=== PATIENT | female | born 1960 | race Two or more races ===

== ENCOUNTER 2017-08-30 21:48 | Inpatient (IN) | payer BC ==
[~2017-08-30] VITALS: Ht 160 cm; Wt 81.6 kg
[~2017-08-30 21:48] MED LIST: FLUOXETINE HCL10 MG ORAL; KEPPRA500 M4 ORAL; LEVOTHYROXINE25 MCG ORAL; LORAZEPAM1 MG ORAL; VENLAFAXINE HCL25 MG ORAL; XANAX0.5 MG ORAL
[2017-08-30] MEDS ORDERED: LORazepam Inj 2mg/ml 1ml IV ONE (22:00)
[2017-08-30] MEDS ORDERED: levETIRAcetam 500mg/NS100ml 100 ML IVPB ONE (22:00)
--- NOTE | 2017-08-30 22:01 | Emergency Room Report ---
History of Present Illness General Chief Complaint: Seizure Source: Patient Present Illness HPI This is a 57-year-old female with a history of brain cancer status post resection. Since then she had seizure. She taking multiple medications of Keppra and Ativan. She had a total of 3 focal seizure tonight. It started with itching of her eyes and lip. Lasted only a few minutes. Her boyfriend called 911. Patient has small focal seizure lasting about 15 seconds here. She is back to baseline. No nausea no vomiting. No fever or chills. Nothing new. Is a frequent occurrence occurring every 2-3 months. Allergies: Coded Allergies: No Known Allergies (Unverified , 11/18/16) Patient History Past Medical History: see triage record, old chart reviewed Past Surgical History: none Pertinent Family History: none Social History: Denies: smoking Last Menstrual Period: n/a Now: No Immunizations: other Reviewed Nursing Documentation: PMH: Agreed, PSxH: Agreed Nursing Documentation-PMH Past Medical History: No History, Except For Hx Seizures: Yes Review of Systems Eye: Denies: eye pain, blurred vision ENT: Denies: ear pain, nose congestion, throat swelling Respiratory: Denies: cough, shortness of breath Cardiovascular: Denies: chest pain, palpitations Gastrointestinal: Denies: abdominal pain, diarrhea, nausea, vomiting Musculoskeletal: Denies: back pain, joint pain Skin: Denies: rash Neurological: Denies: headache, numbness Endocrine: Denies: increased thirst, increased urine Hematologic/Lymphatic: Denies: easy bruising All Other Systems: negative except mentioned in HPI Physical Exam Vital Signs Date Time Temp Pulse Resp B/P (MAP) Pulse Ox O2 Delivery O2 Flow Rate FiO2 08/30/17 21:41 98.2 105 20 126/70 97 Nasal Cannula 2.0 vitals normal Sp02 EP Interpretation: reviewed, normal General Appearance: well appearing, no apparent distress, alert Head: normocephalic, atraumatic Eyes: bilateral eye PERRL, bilateral eye EOMI ENT: hearing grossly normal, normal pharynx Neck: full range of motion, supple, no meningismus Respiratory: chest non-tender, lungs clear, normal breath sounds Cardiovascular #1: regular rate, rhythm, no murmur Gastrointestinal: normal bowel sounds, non tender, no mass, no organomegaly, no bruit, non-distended Musculoskeletal: back normal, gait/station normal, normal range of motion Psychiatric: mood/affect normal Skin: warm/dry Medical Decision Making Diagnostic Impression: Primary Impression: Seizure disorder, partial, intractable ER Course She presents with partial seizure. She had multiple episodes at home and here. No postictal period. She was recently placed back on Effexor for depression. This may have lower her seizure threshold. Her PCP Dr. Chen came to the ER. He said that patient wanted to be back on Effexor even though it may have lower seizure threshold. This was effective for depression before. Patient had recent MRI the last few months of her brain. No recurrence of the meningioma. Because of the multiple seizure episodes, one make her for further workup and possible new seizure medication. I gave her a dose of Keppra here as well as Ativan. I see no need for one more CT scan. Labs unremarkable. I contacted Dr. Dumont for admission. Lab Results Impression labs normal EKG Diagnostic Results Rate: normal Rhythm: NSR ST Segments: no acute changes Rhythm Strip Diag. Results Rhythm Strip Time: 23:43 EP Interpretation: yes Rate: 100 Rhythm: NSR Last Vital Signs Date Time Temp Pulse Resp B/P (MAP) Pulse Ox O2 Delivery O2 Flow Rate FiO2 08/30/17 21:41 98.2 105 20 126/70 97 Nasal Cannula 2.0 Status: improved Disposition: ADMITTED INPATIENT Condition: Serious DIEGO KAPLAN M.D. Aug 30, 2017 22:01
[2017-08-30 23:16] VITALS: BP 101/61
[2017-08-30 23:16] LABS: BASOPHILS % (AUTO) 0.5 % (0.0-2.0); EOSINOPHILS % (AUTO) 1.5 % (0.0-3.0); LYMPHOCYTES % (AUTO) 12.3 % (20.0-45.0); MEAN CORPUSCULAR HGB CONC 31.9 G/DL (32.0-36.0); MEAN CORPUSCULAR VOLUME 91 FL (80-99); MEAN PLATELET VOLUME 7.7 FL (6.5-10.1); MONOCYTES % (AUTO) 5.5 % (1.0-10.0); NEUTROPHILS % (AUTO) 80.3 % (45.0-75.0); PLATELET COUNT 268 K/UL (150-450); RED BLOOD COUNT 4.09 M/UL (4.20-5.40); RED CELL DISTRIBUTION WIDTH 11.7 % (11.6-14.8); WHITE BLOOD COUNT 10.8 K/UL (4.8-10.8)
[2017-08-30 23:34] LABS: ANION GAP 13 (5-15); CALCIUM 9.5 mg/dL (8.6-10.2); CARBON DIOXIDE 24 mEQ/L (20-30); CHLORIDE 100 mEQ/L (98-107); CREATININE 0.7 mg/dL (0.5-0.9); GLOMERULAR FILTRATION RATE > 60 mL/min (>60); HEMOLYSIS 5; POTASSIUM 4.1 mEQ/L (3.4-4.9); SODIUM 137 mEQ/L (135-145)
[2017-08-31] VITALS (7 sets, daily range): BP systolic 88–116; BP diastolic 47–74
[2017-08-31] MEDS ORDERED: LORazepam 1mg tab ORAL PRN (01:00)
[2017-08-31] MEDS ORDERED: levETIRAcetam 500mg/NS100ml 100 ML IVPB SCH (09:00)
[2017-08-31] MEDS ORDERED: levETIRAcetam 1,000mg/NS100ml 100 ML IVPB SCH (09:00)
[2017-08-31 10:16] LABS: BASOPHILS % (AUTO) 0.8 % (0.0-2.0); EOSINOPHILS % (AUTO) 1.5 % (0.0-3.0); LYMPHOCYTES % (AUTO) 22.6 % (20.0-45.0); MEAN CORPUSCULAR HEMOGLOBIN 30.7 PG (27.0-31.0); MEAN CORPUSCULAR HGB CONC 34.1 G/DL (32.0-36.0); MEAN CORPUSCULAR VOLUME 90 FL (80-99); MEAN PLATELET VOLUME 8.7 FL (6.5-10.1); MONOCYTES % (AUTO) 7.5 % (1.0-10.0); NEUTROPHILS % (AUTO) 67.7 % (45.0-75.0); PLATELET COUNT 254 K/UL (150-450); RED BLOOD COUNT 3.71 M/UL (4.20-5.40); RED CELL DISTRIBUTION WIDTH 11.6 % (11.6-14.8); WHITE BLOOD COUNT 8.3 K/UL (4.8-10.8)
[2017-08-31 10:29] LABS: ANION GAP 10 (5-15); CALCIUM 9.1 mg/dL (8.6-10.2); CARBON DIOXIDE 25 mEQ/L (20-30); CHLORIDE 101 mEQ/L (98-107); CREATININE 0.8 mg/dL (0.5-0.9); GLOMERULAR FILTRATION RATE > 60 mL/min (>60); HEMOLYSIS 5; POTASSIUM 3.7 mEQ/L (3.4-4.9); SODIUM 136 mEQ/L (135-145)
--- NOTE | 2017-08-31 12:04 | Neurology Progress Note ---
Objective Physical Exam Last Vital Signs Date Time Temp Pulse Resp B/P (MAP) Pulse Ox O2 Delivery O2 Flow Rate FiO2 08/31/17 11:45 97.0 65 18 95/65 99 Room Air 08/31/17 00:36 2.0 Laboratory Tests Test 08/30/17 23:10 08/31/17 09:50 White Blood Count 10.8 K/UL (4.8-10.8) 8.3 K/UL (4.8-10.8) Red Blood Count 4.09 M/UL (4.20-5.40) L 3.71 M/UL (4.20-5.40) L Hemoglobin 11.9 G/DL (12.0-16.0) L 11.4 G/DL (12.0-16.0) L Hematocrit 37.3 % (37.0-47.0) 33.3 % (37.0-47.0) L Mean Corpuscular Volume 91 FL (80-99) 90 FL (80-99) Mean Corpuscular Hemoglobin 29.0 PG (27.0-31.0) 30.7 PG (27.0-31.0) Mean Corpuscular Hemoglobin Concent 31.9 G/DL (32.0-36.0) L 34.1 G/DL (32.0-36.0) Red Cell Distribution Width 11.7 % (11.6-14.8) 11.6 % (11.6-14.8) Platelet Count 268 K/UL (150-450) 254 K/UL (150-450) Mean Platelet Volume 7.7 FL (6.5-10.1) 8.7 FL (6.5-10.1) Neutrophils (%) (Auto) 80.3 % (45.0-75.0) H 67.7 % (45.0-75.0) Lymphocytes (%) (Auto) 12.3 % (20.0-45.0) L 22.6 % (20.0-45.0) Monocytes (%) (Auto) 5.5 % (1.0-10.0) 7.5 % (1.0-10.0) Eosinophils (%) (Auto) 1.5 % (0.0-3.0) 1.5 % (0.0-3.0) Basophils (%) (Auto) 0.5 % (0.0-2.0) 0.8 % (0.0-2.0) Sodium Level 137 mEQ/L (135-145) 136 mEQ/L (135-145) Potassium Level 4.1 mEQ/L (3.4-4.9) 3.7 mEQ/L (3.4-4.9) Chloride Level 100 mEQ/L (98-107) 101 mEQ/L (98-107) Carbon Dioxide Level 24 mEQ/L (20-30) 25 mEQ/L (20-30) Anion Gap 13 (5-15) 10 (5-15) Blood Urea Nitrogen 13 mg/dL (7-23) 12 mg/dL (7-23) Creatinine 0.7 mg/dL (0.5-0.9) 0.8 mg/dL (0.5-0.9) Estimat Glomerular Filtration Rate > 60 mL/min (>60) > 60 mL/min (>60) Glucose Level 127 mg/dL (74-106) H 85 mg/dL (74-106) Calcium Level 9.5 mg/dL (8.6-10.2) 9.1 mg/dL (8.6-10.2) Impression/Recommendations Recommendations # [id number] MODESTO PINA Aug 31, 2017 12:04
[2017-08-31] MEDS: Topiramate 25mg tab ORAL SCH ×2 (13:46→20:59)
--- NOTE | 2017-08-31 21:15 | Consultation ---
DATE OF CONSULTATION: 08/31/2017 NEUROLOGICAL CONSULTATION REQUESTING PHYSICIAN: Vania Sarmiento M.D. History Of Present Illness: This is a 57-year-old female seen in neurological consultation to evaluate exacerbation of seizure disorder. This is a 57-year-old female, who was healthy until February 2016 when she was diagnosed with presence of meningioma of 3 cm size, presented with initial generalized seizure. She underwent a craniotomy with resection of the meningioma, this was uneventful, but about six months later she had her first generalized seizure. She had a total of few of them, last in May 2017 at which point initial treatment with Keppra was maxed out to 1500 b.i.d. She had repeated MRI of the brain done, this revealed no evidence of acute changes. Yesterday, she developed intermittent at least three episodes of involuntary head and neck jerking. At the time of admission, she was explaining that she felt initially itching her eyes and lips. Her boyfriend described the patient having small focal seizures lasting 15 seconds. There was some changes in level of consciousness as the patient had no full recollection of event. Boyfriend also noticed that she had actually recurrent episodes of this movement once in two to three months. The patient currently is under care of neurologist at [facility]. Following current admission, her vital signs were stable. Her neurological examination was normal. She was afebrile. The patient now informs that recently she was started on Effexor for depression, which may low seizure threshold. Her PCP Dr. Chen, was able to arrive to the emergency room where he requested that the patient would continue with the Effexor because it was effective for her depression. The patient was given extra dose of Keppra 500 mg and Ativan. There were no seizure activities since. EKG normal sinus rhythm. Heart rate of 100. Her initial laboratory work included CBC study with hemoglobin 11.9 and hematocrit 37.3. Chemistry panel, blood sugar 127, otherwise normal. Since admission to present, the patient felt well and there was no further seizure activities. She had a good sleep. Past Medical History: The patient indicates she has no major medical problems, recently developed signs of depression, at times anxiety, keeps at home Ativan or Xanax as needed. She is on Keppra 1500 mg b.i.d. FAMILY HISTORY: Noncontributory. 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 No alcohol. No drug abuse. Nonsmoker. Likes to go to gym. Recently started on vegan diet and receiving biofeed therapy. Review Of Systems: At this time, the patient is feeling fairly well. She has no complaints. Denies headache or dizziness. No chest pain or palpitations. No respiratory problems. Denies abdominal pain or discomfort. No urine or bowel incontinence. PHYSICAL EXAMINATION: General: A well-developed, well-nourished, pleasant lady, not in acute distress. She was asleep, but easily arousable and awake. VITAL SIGNS: Included blood pressure 95/65 and temperature 97.0. HEENT: Head, normocephalic. There is no evidence of injuries, post craniotomy defect. No otorrhea. No rhinorrhea. Neck: Supple. No meningeal signs. Carotids are 1+ bilaterally symmetric. No bruit. Extremities: Upper and lower extremities without clubbing, cyanosis, or edema. Peripheral pulses 1+ and symmetric. Mental Status: Alert and oriented x3 with no evidence of aphasia, no apraxia. Cognitive function normal, somewhat tensed and anxious, asking if she had to continue treatment all her life. Cranial Nerve II: Pupils, both responding to light and accommodation. Extraocular movement intact. No nystagmus. CRANIAL NERVE V: Normal corneal responses. CRANIAL NERVE VII: No facial asymmetry. CRANIAL NERVE VIII: Normal hearing. CRANIAL NERVE IX THROUGH XII: Within normal limits. Motor Examination: Normal muscle tone and strength. Deep tendon reflexes 1+ symmetric. SENSORY EXAM: Normal in all modalities. Gait slow, but stable. IMPRESSION: 1. Chronic partial complex seizure disorder, exacerbation. 2. History of depression, anxiety. 3. Mild anemia. RECOMMENDATION: 1. Get EEG. 2. Observe for seizure activities following 24 hours. 3. Maintain on Keppra 1500 mg b.i.d. 4. Start on Topamax 50 mg b.i.d. to be titrated as necessary. 5. Upon discharge, the patient will contact her neurologist at [facility] for reassessment and adjustment of medication. 6. Issue of antidepressants or antianxiety will be deferred to psychiatrist. Thank you for allowing me to see this interesting patient in neurological consultation. Mike Trang Parkinson DR: POP JOB#: [id number] CC:
[2017-09-01] VITALS: BP 95/58
[2017-09-01 04:00] VITALS: BP 83/51
[2017-09-01 08:00] VITALS: BP 89/57
--- NOTE | 2017-09-01 08:15 | History and Physical Report ---
DATE OF ADMISSION: 08/30/2017 History Of Present Illness: The patient comes in because she had seizure disorder and had a seizure yesterday. The patient had a brain tumor diagnosed last year and this was removed and the patient had 2 seizures since then, 1 seizure being yesterday. She has a history of meningioma as well. She does have some mild headache. Did have nausea, but had no vomiting. No diplopia. No shortness of breath. No cough. No chest pain. Past Medical History: Anxiety, depression, seizure disorder, hypothyroidism, depression, brain tumor, seizure disorder, and history of hot flashes. PAST SURGICAL HISTORY: History of brain tumor removed. MEDICATIONS: Effexor, Keppra, fluoxetine, and Xanax. ALLERGIES: No known allergies. FAMILY HISTORY: Noncontributory. Social History: The patient denies history of smoking, alcohol, or illicit drugs. Review of Systems: HEENT: Denies headaches. Respiratory: Denies shortness of breath. Denies cough. Cardiovascular: Denies chest pain. No orthopnea. Gastrointestinal: Does have nausea, but no vomiting. Extremities: Denies pain. Central Nervous System: Denies any change in vision or speech pattern. Had seizure yesterday that lasted minutes. Denies headache. No diplopia. PHYSICAL EXAMINATION: Vital Signs: Temperature is 97.5 degrees, pulse is 112, blood pressure 116/75. HEENT: PERRLA. NECK: Supple. No lymphadenopathy. CHEST: Clear to auscultation. Gastrointestinal: Soft, nontender, and nondistended. No organomegaly. EXTREMITIES: No edema. Neurologic: Moves all 4 extremities. Sensory intact to light touch. Reflexes equal on both sides. Oriented x3. Cranial nerves II through XII are intact. Laboratory Data: WBC of 10.8, hemoglobin 11.9, and platelets of 268,000. Sodium 137, potassium 4.1, BUN of 17, and creatinine 0.7. Assessment And Plan: Breakthrough seizure. Plan on being on seizure medications. The patient also had fluctuating episodes of facial twitching. The patient was also put on some breakthrough seizure. I have asked Dr. Mike Parkinson to see the patient for the adjustment of the seizure medications and Dr. Akers for possible dehydration as well. Ali Trang Sarmiento DR: Vandana JOB#: [id number] CC:
[2017-09-01] MEDS: Topiramate 25mg tab ORAL SCH ×2 (09:25→21:33)
--- NOTE | 2017-09-01 10:51 | Neurology Progress Note ---
Interim History Interim History ROS Limited/Unobtainable: No Complaints: feel very depressed/upset with sz event Events: boyfriend at bedside,no sz noted Interim History EEG R F-C epileptogenc activity Objective Physical Exam Last Vital Signs Date Time Temp Pulse Resp B/P (MAP) Pulse Ox O2 Delivery O2 Flow Rate FiO2 09/01/17 08:00 97.0 64 18 89/57 97 Room Air 08/31/17 00:36 2.0 General: well developed, well nourished, no acute distress Head: normocophalic, atraumatic Neck: no rigidity Neurologic Exam Mental Status: awake, alert, oriented x4, normal cognition, good mathematical skills, normal recent memory, normal remote memory, preserved visuospatial function, other - mood depressed anxious Speech: normal speech, no dysarthia Language: normal language, no aphasia Cranial Nerve II: fundus normal, visual hernandes, no papilledema Cranial Nerves III, IV, : PERRLA, EOMI, pupils Cranial Nerve V: normal facial sensations, temporales function normal, masseters function normal, pterygoids function normal Cranial Nerve VII: no facial asymmetry, normal facial expressions Cranial Nerve VIII: normal hearing, no nystagmus Cranial Nerve IX: normal palate elevation, gag response Cranial Nerve X: no voice hoarseness Cranial Nerve XI: SCM symmetric, trapezii function normal Cranial Nerve XII: tongue midline, no tongue atrophy/fasciculations Motor System: normal muscle tone, strength 5/5, no involuntary movement, no muscle wasting Sensory: normal pinprick, normal light touch, normal position sense, normal graphesthesia Coordination: normal finger to nose bilaterally, normal heel to quiñonez bilaterally, negative Romberg test Deep Tendon Reflexes: 2+ bicep (L), 2+ bicep (R), 2+ tricep (L), 2+ tricep (R) , 2+ brachioradialis (L), 2+ brachioradialis (R), 2+ knee (L), 2+ knee (R), 2+ ankle (L), 2+ ankle (R) Stance: normal Gait: stable, normal regular, heel + toe gait Impression/Recommendations Problems: (1) Seizure disorder, partial, intractable Status: stable, unchanged Recommendations # [id number] EEG hi risk of sz activity d/w patient/boyfriend insisted on d/c home will contact PMD renetta keppra 2000mg bid topamax 50mg bid--titrate MODESTO PINA Sep 01, 2017 10:51
[2017-09-01] MEDS ORDERED: Topiramate 25mg tab ORAL ONE (11:20)
[2017-09-01 12:00] VITALS: BP 101/64
--- NOTE | 2017-09-01 15:29 | Infectious Diseases Prog Note ---
Assessment/Plan Problems: (1) Seizure disorder, partial, intractable Assessment & Plan: no evidence of infectious etiology, had recent MRI of the brain which was normal, no URI no fever or chills, no blurry vision or neck stiffness . continue current seizure management as per neurology. no need for antibiotics (2) Depression Assessment & Plan: continue psych meds, follow up with psychiatrist Subjective Allergies: Coded Allergies: No Known Allergies (Unverified , 11/18/16) Objective Vital Signs Last 24 Hour Vital Signs Date Time Temp Pulse Resp B/P (MAP) Pulse Ox O2 Delivery O2 Flow Rate FiO2 09/01/17 12:00 98.1 93 20 101/64 93 Room Air 09/01/17 08:00 71 09/01/17 08:00 97.0 64 18 89/57 97 Room Air 09/01/17 04:00 97.5 74 20 83/51 98 Room Air 09/01/17 04:00 60 09/01/17 00:00 98.1 72 20 95/58 96 Room Air 09/01/17 00:00 72 08/31/17 20:00 97.2 99 20 88/47 Room Air 08/31/17 20:00 67 08/31/17 16:00 72 08/31/17 15:53 97.2 67 18 94/58 95 Room Air Height (Feet): 5 Height (Inches): 3.00 Weight (Pounds): 180 Current Medications Medications (Trade) Dose Ordered Sig/[place] Route PRN Reason Start Time Stop Time Status Last Admin Dose Admin Acetaminophen (Tylenol) 650 mg Q4HR PRN ORAL For Pain 08/31/17 01:00 09/30/17 00:59 08/31/17 02:05 Levetiracetam (Keppra) 2,000 mg Q12HR ORAL 09/01/17 21:00 10/01/17 20:59 Lorazepam (Ativan) 1 mg Q1HR PRN ORAL For Seizures 08/31/17 01:00 09/07/17 00:59 Sodium Chloride 1,000 ml @ 75 mls/hr [id number] IV 08/31/17 01:00 09/30/17 00:59 08/31/17 01:34 Topiramate (Topamax) 50 mg EVERY 12 HOURS ORAL 10/5/17 21:00 10/01/17 20:59 Mac Hernandez M.D. Sep 01, 2017 15:29
[2017-09-01 16:00] VITALS: BP 102/65
--- NOTE | 2017-09-01 16:15 | Electroencephalogram ---
DATE OF PROCEDURE: 08/31/2017 ELECTROENCEPHALOGRAPHY REPORT REQUESTING PHYSICIAN: Vania Sarmiento M.D. EEG was done using 18 electrodes placed scalp to scalp and scalp to ear montages according to 10-20 International System. The patient has a history of right-sided meningioma resection in February 2016, followed by intermittent episodes of partial seizure activities. The patient now presented with exacerbation of symptomatology. Maintained on Keppra 1500 mg b.i.d. and started on Topamax 25 mg b.i.d. During the recording, the patient described as being awake or drowsy, but fairly cooperative, normal mentality, with no clinical signs of involuntary movement. Most wakeful portions of recording, background activity consisted of prolonged low to medium voltage, mixture of 8-10 cycles per second alpha activities with transient low voltage beta activities. Throughout the recording, slowness of 3-4 cycles per second theta range noted over right frontal and centroparietal area with intermittent, once in 1-2 seconds, high-voltage sharp/slow wave transients with phase reversal at F4_lead. Occasional generalizing and slow to left central region. There were no clinical signs of seizure activity, intermittently attenuation of background was noted corresponding to sleep stages while spike and wave/slow sharp and wave transient persists. Predominantly in a right frontal, but also right central area. Activation procedure limited to eye opening and eye closure. Impression: Abnormal EEG in the presence of focal theta range slowing in the right frontal, centroparietal area with intermittent epileptic discharges emanating predominantly on right frontal/central area. Comment: Note this type of abnormality indicates an electrographic epileptic activity emanating from right frontal, central area with no evidence of clinical presentation. Presence of focal findings correspond to underlying structural lesion presumably previous craniotomy and tumor resection. Significant risk of clinical epileptic transformation. Clinical correlation is necessary. Mike Parkinson M.D. DR: POP JOB#: [id number] CC:
--- NOTE | 2017-09-01 18:16 | General Progress Note ---
Assessment/Plan Problem List: (1) Seizure disorder ICD Codes: G40.909 - Epilepsy, unspecified, not intractable, without status epilepticus SNOMED: [id number] Status: progressing Assessment/Plan nerulogy did not clear the patient for dc he wants to moniter on new sz meds dc in am Subjective ROS Limited/Unobtainable: Yes Constitutional: Reports: no symptoms Allergies: Coded Allergies: No Known Allergies (Unverified , 11/18/16) Objective Last 24 Hour Vital Signs Date Time Temp Pulse Resp B/P (MAP) Pulse Ox O2 Delivery O2 Flow Rate FiO2 09/01/17 16:00 98.0 96 20 102/65 96 Room Air 09/01/17 12:00 81 09/01/17 12:00 98.1 93 20 101/64 93 Room Air 09/01/17 08:00 71 09/01/17 08:00 97.0 64 18 89/57 97 Room Air 09/01/17 04:00 97.5 74 20 83/51 98 Room Air 09/01/17 04:00 60 09/01/17 00:00 98.1 72 20 95/58 96 Room Air 09/01/17 00:00 72 08/31/17 20:00 97.2 99 20 88/47 Room Air 08/31/17 20:00 67 Height (Feet): 5 Height (Inches): 3.00 Weight (Pounds): 180 Respiratory/Chest: lungs clear Vania Sarmiento MD Sep 01, 2017 18:16
[2017-09-01 20:00] VITALS: BP 100/64
--- NOTE | 2017-09-01 22:15 | Consultation ---
DATE OF CONSULTATION: 09/01/2017 INFECTIOUS DISEASE CONSULTATION CONSULTING PHYSICIAN: Mac Hernandez M.D. REQUESTING PHYSICIAN: Vania Sarmiento M.D. Reason for Consultation: Breakthrough seizure, rule out infectious etiology. History Of Present Illness: The patient is a 57-year-old female with past medical history of meningioma, status post surgical resection presented to [facility] with breakthrough generalized seizure. The patient had craniotomy with resection of meningioma 18 months ago and she developed later generalized seizure, which she was treated for with Keppra. The patient had recent MRI repeated revealed no evidence of any acute changes. She presented the night of admission with breakthrough seizure episode so she was admitted to the hospital for further evaluation and management, and I was consulted by the primary provider to rule out infectious etiology of her breakthrough seizure. Review Of Systems: A 14-point system review was all negative apart from the one I mentioned above in my H and P. Past Medical History: Significant for meningioma, status post craniotomy with resection, later complicated with generalized seizure. PAST SURGICAL HISTORY: She had craniotomy for meningioma resection. ALLERGIES: No known drug allergy. MEDICATIONS: She is on Keppra, Topamax, Ativan, and Tylenol. FAMILY HISTORY: Not contributory. Social History: The patient lives with boyfriend and unemployed. Denied using any drugs, tobacco, or alcohol. Laboratory Data: Labs showed white count of 8.3, hemoglobin of 11.4, and platelet count of 254,000. BUN of 12, creatinine of 0.8. Imaging: She had venous Doppler showed patent deep venous system bilaterally. PHYSICAL EXAMINATION: Vital Signs: Temperature 98.1, pulse 93, respirations 20, blood pressure 101/64, and saturation 93% on room air. General: A middle-aged female, up in bed, awake, alert, oriented, not in distress. HEENT: Normocephalic, atraumatic. Pupils are reactive to light equally. Moist oral mucosa. No exudate. NECK: Supple. No lymphadenopathy. CARDIOVASCULAR: Regular rate and rhythm. No murmur. No gallop. Lungs: Clear bilaterally. No wheezing or rhonchi. Normal breathing effort. Abdomen: Soft, nontender, and nondistended. Positive bowel sounds. No hepatosplenomegaly or ascites. EXTREMITIES: No edema or cyanosis. SKIN: No rash or hives. NEUROLOGIC: Nonfocal with normal sensation. ASSESSMENT AND RECOMMENDATION: 1. Seizure disorder, partial with breakthrough. At this point, no evidence of infectious etiology to explain it. The patient had recent MRI of the brain, which was normal. No upper respiratory infection. No fever or chills. No blurry vision or neck stiffness to explain meningitis. At this point, I would continue seizure management as per Neurology. No need for antibiotics. Continue neuro check while she is in the unit. Follow up with neurologist at [facility]. 2. Depression. Continue psych medicine. Follow up with psychiatrist as needed. Thank you for the consult. Plan of care was discussed with the patient and the boyfriend at the bedside. Mac Hernandez M.D. DR: ANTONELLA JOB#: [id number] CC:
[2017-09-02 04:00] VITALS: BP 81/51
[2017-09-02] MEDS: Topiramate 25mg tab ORAL SCH (09:00)
--- NOTE | 2017-09-02 11:07 | Diagnostic Imaging Report ---
APPROVED REPORT CPT Code: 59761 Present Symptoms Comments: R/O DVT Hx of Seizures BILATERAL: Imaging reveals a patent deep venous system bilaterally. There is no evidence of thrombus within the femoral, popliteal or tibial segments. The greater saphenous veins are also within normal limits. Doppler indicates normal spontaneous flow within these segments.
[2017-09-02 12:00] VITALS: BP 90/51
--- NOTE | 2017-09-02 12:16 | Neurology Progress Note ---
Interim History Interim History ROS Limited/Unobtainable: Yes Complaints: feel very depressed/upset with topamax Events: boyfriend at bedside,no sz noted Objective Physical Exam Last Vital Signs Date Time Temp Pulse Resp B/P (MAP) Pulse Ox O2 Delivery O2 Flow Rate FiO2 09/02/17 12:00 97.1 70 20 90/51 98 Room Air 08/31/17 00:36 2.0 General: well developed, well nourished, no acute distress Head: normocophalic, atraumatic Neck: no rigidity Neurologic Exam Mental Status: awake, alert, oriented x4, normal cognition, good mathematical skills, normal recent memory, normal remote memory, preserved visuospatial function, other - mood depressed anxious Speech: normal speech, no dysarthia Language: normal language, no aphasia Cranial Nerve II: fundus normal, visual hernandes, no papilledema Cranial Nerves III, IV, : PERRLA, EOMI, pupils Cranial Nerve V: normal facial sensations, temporales function normal, masseters function normal, pterygoids function normal Cranial Nerve VII: no facial asymmetry, normal facial expressions Cranial Nerve VIII: normal hearing, no nystagmus Cranial Nerve IX: normal palate elevation, gag response Cranial Nerve X: no voice hoarseness Cranial Nerve XI: SCM symmetric, trapezii function normal Cranial Nerve XII: tongue midline, no tongue atrophy/fasciculations Motor System: normal muscle tone, strength 5/5, no involuntary movement, no muscle wasting Sensory: normal pinprick, normal light touch, normal position sense, normal graphesthesia Coordination: normal finger to nose bilaterally, normal heel to quiñonez bilaterally, negative Romberg test Deep Tendon Reflexes: 2+ bicep (L), 2+ bicep (R), 2+ tricep (L), 2+ tricep (R) , 2+ brachioradialis (L), 2+ brachioradialis (R), 2+ knee (L), 2+ knee (R), 2+ ankle (L), 2+ ankle (R) Stance: normal Gait: stable, normal regular, heel + toe gait Impression/Recommendations Problems: (1) Seizure disorder, partial, intractable Status: progressing Recommendations # [id number] EEG hi risk of sz activity d/w patient/boyfriend d/c home will contact PMD renetta dr Jean gonzalez 2000start on lamictal 25mg bid MODESTO PINA Sep 02, 2017 12:16
[2017-09-02] MEDS ORDERED: 1/2 NS 1000ml IV ONE (12:26)
[2017-09-05] MEDS ORDERED: TOPAMAX25 MG ORAL (14:39)
[2017-09-05] MEDS ORDERED: KEPPRA500 M4 ORAL (14:39)
--- NOTE | 2017-09-05 14:45 | Discharge Summary ---
Discharge Summary Hospital Course Date of Admission Aug 30, 2017 at 23:06 Date of Discharge Sep 02, 2017 at 12:27 Admitting Diagnosis seizure HPI Zulema Narvaez is a 57 year old female who was admitted on Aug 30, 2017 at 23: 06 for Seizure Hospital Course dc summary #[id number] Discharge Medications New Medications: Topiramate* (Topamax*) 25 Mg Tablet 50 MG ORAL EVERY 12 HOURS, #60 TAB Changed Medications: Levetiracetam (Keppra) 500 Mg Tablet 2000 MG ORAL EVERY 12 HOURS, #60 TAB 0 Refills (Changed from: 500 MG) Discontinued Medications: Alprazolam* (Xanax*) 0.5 Mg Tablet 0.5 MG ORAL, TAB Fluoxetine Hcl* (Fluoxetine Hcl*) 10 Mg Capsule 10 MG ORAL DAILY, CAP Levothyroxine Sodium* (Levothyroxine Sodium*) 25 Mcg Tablet 25 MCG ORAL DAILY, TAB Take in the morning on an empty stomach, at least 30 minutes before food. Lorazepam* (Lorazepam*) 1 Mg Tablet 1 MG ORAL THREE TIMES A DAY, TAB Venlafaxine Hcl* (Effexor*) 25 Mg Tablet 25 MG ORAL THREE TIMES A DAY, TAB Discharge Condition Upon Discharge: stable Discharge Disposition Patient was discharged to Home (01) Discharge Diagnoses: Discharge Instructions Discharge Instructions Special Instructions I have been assigned to complete a D/C Summary on this account. I was not involved in the patient management Anastacia Lo NP ([place]) Sep 05, 2017 14:45
--- NOTE | 2017-09-06 05:30 | Discharge Summary 2 SIG ---
DATE OF ADMISSION: 08/30/2017 DATE OF DISCHARGE: 09/02/2017 CONSULTANTS: 1. Mike Parkinson M.D., Neurologist. 2. Mac Hernandez M.D., Infectious Disease specialist. BRIEF HOSPITAL STAY: 57 years old female with a history of brain cancer, status post resection, as a result developed seizure disorder, presented with intractable focal seizures x3, each of them lasted about 15 seconds. No nausea, no vomiting, no fever, no chills. Neurology consult was requested. Neurologist ordered EEG. EEG was abnormal. Per Neurology, EEG revealed high risk for further seizure activity. The patient started on Keppra, dose was up- titrated. The patient was started on Topamax, initially 25 mg twice a day ,up titrated to 50 mg twice a day. No further seizure activities while in the hospital. The patient has a primary medical doctor, Dr. Chen. The patient also follows up with neurologist at [facility]. Psychiatric medications for depression and anxiety were continued. Hemoglobin and hematocrit at the baseline, remained stable. Per Infectious Disease doctor, no evidence of infectious etiology, no upper respiratory infection, no fever, no chills, no blurry vision, no neck stiffness. No need for antibiotic , observe patient off antibiotics. The patient was stable for discharge and follow up with the primary medical doctor and neurologist in [facility]. FINAL DIAGNOSES: 1. Chronic partial complex seizure disorder exacerbation. 2. Depression/anxiety. 3. Mild anemia. DISCHARGE MEDICATIONS: See medication reconciliation list. DISCHARGE INSTRUCTIONS: The patient was discharged home. Follow up with primary medical doctor. Follow up with neurologist in [facility]. Vania Sarmiento M.D. I have been assigned to dictate discharge summary on this account and I was not involved in the patient's management. Anastacia LewisUpstate University Hospital Community CampusMarcelino, N.P. DR: JAKY JOB#: [id number] CC: LEX
--- NOTE | 2017-09-08 23:15 | Cardiology Report ---
APPROVED REPORT EKG Measurement Heart [id number] Sinus tachycardia Cannot rule out Anterior infarct, age undetermined Abnormal ECG
== END 2017-09-02 12:27 | disposition home or self-care (01) | DRG 101 ==
LOC: EDBD 21:48 → EMR 21:56 → 2E 23:06 → EDBEDREQ 23:47
DX: G40.219 Localization-related (focal) (partial) symptomatic epilepsy and epileptic syndromes with complex partial seizures, intractable, without status epilepticus (principal); D64.9 Anemia, unspecified; F41.8 Other specified anxiety disorders; Z85.841 Personal history of malignant neoplasm of brain
CPT/HCPCS: 36415; 80048; 80299; 85025; 93005; 93970; 95819; 99285; J2405